=== PATIENT | female | born 1995 | race African-American/Black ===

== ENCOUNTER 2018-01-06 21:57 | Emergency (ER) | payer OTHER ==
[~2018-01-06] VITALS: Ht 162.6 cm; Wt 56.4 kg
[2018-01-06 22:06] VITALS: BP 129/80
[2018-01-06] MEDS ORDERED: FERR325T14 PO (22:45)
--- NOTE | 2018-01-06 22:45 | PHYS DOC ---
Past Medical History Past Medical History: No Pertinent History Past Surgical History: No Surgical History Alcohol Use: None Drug Use: None Adult General Chief Complaint Chief Complaint: UPPER EXTREMITY PAIN HPI HPI Patient is a 22 year old female who presents with right ear right face right leg right arm tingling that started 45 minutes prior to arrival. She states she has no dizziness, nausea, vomiting, headache, chest pain, shortness of air. She states that she had a headache this morning and took Tylenol which took the headache away. Patient states she only has a history of anemia and she just got done with iron pills. Patient has no known allergies. She states that she does smoke cigarettes and does not do drugs and does not do alcohol. Review of Systems Review of Systems Constitutional: Denies fever or chills [] Eyes: Denies change in visual acuity, redness, or eye pain [] HENT: Denies nasal congestion or sore throat [] Respiratory: Denies cough or shortness of breath [] Cardiovascular: No additional information not addressed in HPI [] GI: Denies abdominal pain, nausea, vomiting, bloody stools or diarrhea [] : Denies dysuria or hematuria [] Musculoskeletal: Denies back pain or joint pain [] Integument: Denies rash or skin lesions [] Neurologic: Denies headache, focal weakness. Right ear, face, arm, and leg tingling sensory changes [] Endocrine: Denies polyuria or polydipsia [] All other systems were reviewed and found to be within normal limits, except as documented in this note. Allergies Allergies Allergies Coded Allergies Type Severity Reaction Last Updated Verified No Known Drug Allergies 11/10/13 No Physical Exam Physical Exam Constitutional: Well developed, well nourished, no acute distress, non-toxic appearance. [] HENT: Normocephalic, atraumatic, bilateral external ears normal, oropharynx moist, no oral exudates, nose normal. [] Eyes: PERRLA, EOMI, conjunctiva normal, no discharge. [] Neck: Normal range of motion, no tenderness, supple, no stridor. [] Cardiovascular:Heart rate regular rhythm, no murmur [] Lungs & Thorax: Bilateral breath sounds clear to auscultation [] Abdomen: Bowel sounds normal, soft, no tenderness, no masses, no pulsatile masses. [] Skin: Warm, dry, no erythema, no rash. [] Back: No tenderness, no CVA tenderness. [] Extremities: No tenderness, no cyanosis, no clubbing, ROM intact, no edema. [] Neurologic: Alert and oriented X 3, normal motor function, right side of body has lessened sensation than her left sensory function, no focal deficits noted. [] Psychologic: Affect normal, judgement normal, mood normal. [] Current Patient Data Vital Signs Vital Signs Date Time Temp Pulse Resp B/P (MAP) Pulse Ox O2 Delivery O2 Flow Rate FiO2 01/06/18 22:06 98.5 74 18 129/80 (96) 100 Room Air 98.5 Lab Values Laboratory Tests Test 01/06/18 22:22 POC Urine HCG, Qualitative Hcg negative (Negative) EKG EKG [] Radiology/Procedures Radiology/Procedures [] Course & Med Decision Making Course & Med Decision Making Patient is a 22 year old female who presents with right ear right face right leg right arm tingling that started 45 minutes prior to arrival. She states she has no dizziness, nausea, vomiting, headache, chest pain, shortness of air. She states that she had a headache this morning and took Tylenol which took the headache away. Patient states she only has a history of anemia and she just got done with iron pills. Patient has no known allergies. She states that she does smoke cigarettes and does not do drugs and does not do alcohol. Alert and oriented. Lungs are clear to auscultation in all lobes. PERRLA. Walks with a steady gait. 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 Patient denies any visual changes. Patient has no extremity edema. Patient denies any pain at this time. Consult with Dr. Caruso on this patient. Patient is to follow-up with her primary care doctor for anemia. I will give her prescription for iron pills. Patient states she has a history of anemia and states that this is how she got when she was anemic. Patient says that she just finished her and pills but when asked when her last iron pill was she stated 2 months ago. Her conjunctivae is slightly pale. Vital signs are normal. [] Dragon Disclaimer Dragon Disclaimer This electronic medical record was generated, in whole or in part, using a voice recognition dictation system. NIHSS Stroke Scale NIH Stroke Scale: NIH Stroke Scale Response (Comments) Value Level of Consciousness: 0 Alert/Responsive 0 LOC Questions: 0 Answers both correctly 0 LOC Commands: 0 Performs both tasks 0 Best Gaze: 0 Normal 0 Visual: 0 No visual loss 0 Facial Palsy: 0 Normal, symmetrical 0 Motor - Left Arm 0 No drift 0 Motor - Right Arm 0 No drift 0 Motor - Left Leg 0 No drift 0 Motor: Right Leg 0 No drift 0 Limb Ataxia: 0 Absent 0 Sensory: 1 Mid to moderate loss 1 Best Language: 0 Normal 0 Dysathria: 0 Normal 0 Extinction and Inattention: 0 Normal 0 Total 1 Departure Departure Impression: Primary Impression: Anemia Disposition: HOME, SELF-CARE Condition: STABLE Referrals: UNKNOWN PCP NAME (PCP) Patient Instructions: Anemia, Nonspecific-Brief Additional Instructions: Follow-up with her primary care. Take medications as prescribed. Take 500 mg of vitamin C a day because it helps absorb iron. Scripts Ferrous Sulfate (FERROUS SULFATE) 325 Mg Tablet 1 TAB PO DAILY, #30 TAB 3 Refills Prov: SHANAE QUINTANA APRN 01/06/18 Problem Qualifiers Primary Impression: Anemia Anemia type: unspecified type Qualified Codes: D64.9 - Anemia, unspecified SHANAE QUINTANA APRN Jan 06, 2018 22:45
== END 2018-01-06 22:53 | disposition home or self-care (01) ==
LOC: ER 21:57
DX: D64.9 Anemia, unspecified (principal); R51 Headache; F17.210 Nicotine dependence, cigarettes, uncomplicated
CPT/HCPCS: 81025; 99283